=== PATIENT | female | born 1990 | race Two or more races ===

== ENCOUNTER → 2024-08-25 | Outpatient (CLI) | payer MEDICAID ==
[2024-08-25 11:52] LABS: Basophils # (auto) 0.1 10 ^3/uL (0-0.2); Basophils % (auto) 0.7 % (0.0-2.0); Eosinophils # (auto) 0.1 10 ^3/uL (0-0.8); Eosinophils % (auto) 1.3 % (0.0-7.0); Hematocrit 37.8 % (36.0-46.0); Hemoglobin 12.9 g/dL (12.2-16.2); Lymphocytes # (auto) 1.1 10 ^3/uL (0.4-5.4); Lymphocytes % (auto) 14.9 % (10.0-50.0); Mean Corpuscular Hemoglobin 32.7 pg (28.0-32.0); Mean Corpuscular Hgb Conc. 34.1 g/dL (32.0-36.0); Mean Corpuscular Volume 95.9 fL (80.0-100.0); Monocytes # (auto) 0.4 10 ^3/uL (0-1.3); Monocytes % (auto) 5.9 % (0.0-12.0); Neutrophils # (auto) 5.7 10 ^3/uL (1.6-8.6); Neutrophils % (auto) 77.2 % (37.0-80.0); Platelet Count (auto) 250 10^3/uL (140-450); Red Blood Cells 3.94 10^6/uL (4.0-5.20); Red Cell Distribution Width 13.5 % (11.8-14.3); White Blood Cell 7.4 10^3/uL (4.4-10.8)
[2024-08-25 12:11] LABS: Amphetamine Screen, Urine Neg (NEGATIVE); Barbiturate Scree,Urine Neg (NEGATIVE); Benzodiazephine Screen, Urine Neg (NEGATIVE); Cannabinoid Screen, Urine Neg (NEGATIVE); Cocaine Screen, Urine Neg (NEGATIVE); Opiate Scree,Urine Neg (NEGATIVE); Phencyclidine Screen, Urine Neg (NEGATIVE)
[2024-08-26 08:06] LABS: RPR Non Reactive (Non Reactive)
[2024-08-26 23:06] LABS: Chlamydia Trachomatis, NAA Negative (Negative); Neisseria gonorrhoeae, NAA Negative (Negative)
[2024-08-27 15:06] LABS: QuantiFERON-TB Gold Plus Negative (Negative)
== END | disposition home or self-care (01) ==
LOC: LAB 10:53
PROVIDERS: ATTEND Obstetrics & Gynecology
DX: N39.0 Urinary tract infection, site not specified (principal); Z20.09 Contact with and (suspected) exposure to other intestinal infectious diseases; Z31.430 Encounter of female for testing for genetic disease carrier status for procreative management
CPT/HCPCS: 36415; 80307; 83036; 84144; 84702; 85025; 86592; 86703; 86762; 86850; 86900; 86901; 87086; 87340

== ENCOUNTER 2025-01-12 09:41 | Outpatient (CLI) | payer MEDICAID ==
[2025-01-12 10:05] LABS: Basophils # (auto) 0 10 ^3/uL (0-0.2); Basophils % (auto) 0.5 % (0.0-2.0); Eosinophils # (auto) 0.1 10 ^3/uL (0-0.8); Eosinophils % (auto) 1.6 % (0.0-7.0); Hematocrit 38.4 % (36.0-46.0); Hemoglobin 13.2 g/dL (12.2-16.2); Lymphocytes # (auto) 1.1 10 ^3/uL (0.4-5.4); Lymphocytes % (auto) 14.7 % (10.0-50.0); Mean Corpuscular Hgb Conc. 34.4 g/dL (32.0-36.0); Mean Corpuscular Volume 96.1 fL (80.0-100.0); Monocytes # (auto) 0.5 10 ^3/uL (0-1.3); Monocytes % (auto) 6.5 % (0.0-12.0); Neutrophils # (auto) 5.5 10 ^3/uL (1.6-8.6); Neutrophils % (auto) 76.7 % (37.0-80.0); Nucleated Red Blood Cells % 0.1 %; Platelet Count (auto) 210 10^3/uL (140-450); Red Blood Cells 3.99 10^6/uL (4.0-5.20); Red Cell Distribution Width 13.2 % (11.8-14.3); White Blood Cell 7.2 10^3/uL (4.4-10.8)
[2025-01-14 02:06] LABS: Chlamydia Trachomatis, NAA Negative (Negative); Neisseria gonorrhoeae, NAA Negative (Negative)
== END 2025-01-12 17:00 | disposition home or self-care (01) ==
LOC: LAB 09:41
PROVIDERS: ATTEND Obstetrics & Gynecology
DX: Z34.80 Encounter for supervision of other normal pregnancy, unspecified trimester (principal); Z72.51 High risk heterosexual behavior; Z3A.00 Weeks of gestation of pregnancy not specified
CPT/HCPCS: 36415; 85025; 86780

== ENCOUNTER 2025-01-30 08:30 | Observation (INO) | payer MEDICAID ==
[2025-01-30] MEDS ORDERED: PREN-96 PO (11:31)
--- NOTE | 2025-01-30 11:56 | DVH ---
BIOPHYSICAL PROFILE HISTORY: AMA TECHNIQUE: Multiple transabdominal real-time grayscale sonographic images through the gravid uterus of the fetus with duplex Doppler color flow and M-mode spectral analysis FINDINGS: BIOPHYSICAL PROFILE: breathing score: 2/2 movement score: 2/2 tone score: 2/2 Quantitative ARMINDA score: 2/2 (ARMINDA: 11.47 Cm.) Total score: 8/8 The cervix closed Single live fetus in cephalic presentation. heart rate 146 beats per minute. anterior placenta without previa or abruption IMPRESSION: 1. Biophysical profile score: 8/8
--- NOTE | 2025-01-30 21:34 | DVHDS2 ---
Physician Discharge Progress N Final Diagnosis: ama, 39wks Operations or Procedures: Operations or Procedures nst reactive reviwed,sono Condition on Discharge: Good Disposition: Home Discharge Instructions: Diet: Regular Activity: No Restrictions, As Tolerated Follow Up/Referral: As scheduled. Medications: na Follow Up Care: Specialist: 2d,refuses induction Discharge Statement: "Patient was advised to return to the ER or call 911 if any headaches, dizziness, shortness of breath, chest pain, abdominal pain, bleeding, fevers, or worsening of medical condition. Patient was counseled about treatment plan, medications, possible side effects, patientverbalized understanding. All questions were answered to the best of my ability. This discharge took greater then 30 minutes in planning, reviewing documentation, counseling the patient, and discussing with other team members." Visit Coding OBGYN Date of Service: Jan 29, 2025 Billing Provider: JIAN MENARD DO OFFICE MANAGER Common Visit Codes: 76537-QCFOOVX INP/OBS CARE (HIGH) OFFICE MANAGER Procedure Codes: 99087-93- NON-STRESS TEST JIAN MENARD DO Jan 30, 2025 21:34
== END 2025-01-30 12:46 | disposition home or self-care (01) ==
LOC: LDRP 11:15
PROVIDERS: ADMIT Obstetrics & Gynecology; ATTEND Obstetrics & Gynecology
DX: Z36.89 Encounter for other specified antenatal screening (principal); Z98.890 Other specified postprocedural states; Z79.899 Other long term (current) drug therapy; Z3A.39 39 weeks gestation of pregnancy
CPT/HCPCS: 59025; 76819; 81002; 94760; G0378

== ENCOUNTER 2025-02-07 09:48 | Inpatient (IN) | payer MEDICAID ==
[~2025-02-07] VITALS: Ht 162.6 cm; Wt 68.0 kg
[~2025-02-07 09:48] MED LIST: PREN-96 PO
[2025-02-07] MEDS ORDERED: BUTORPHANOL TARTRATE 2 MG/1 ML VIAL IV PRN ×2 (11:15)
[2025-02-07] MEDS ORDERED: LIDOCAINE 2%HCL (LOCAL ANESTH.) INJ 20ML MDV IJ PRN (11:15)
--- NOTE | 2025-02-07 11:32 | DVHHP ---
ADMIT DATE: 02/07/2025 CHIEF COMPLAINT: Post dates, here for augmentation of labor. HISTORY OF PRESENT ILLNESS: The patient is a 34-year-old, 6, para 5, with an EDC of 01/31/2025, at an estimated gestational age of 41 weeks, admitted for augmentation of labor. The patient missed all her appointments. She then showed up to the office and stated she did not know what she was supposed to do. She previously had declined induction of labor. PAST MEDICAL HISTORY: None. PAST SURGICAL HISTORY: None. SOCIAL HISTORY: None. FAMILY HISTORY: None. OBSTETRIC AND GYNECOLOGIC HISTORY: Five normal vaginal deliveries. REVIEW OF SYSTEMS: Consistent with HPI. PHYSICAL EXAMINATION: VITAL SIGNS: Stable, afebrile. HEENT: Within normal limits. CARDIOVASCULAR: Regular rate and rhythm. LUNGS: Clear to auscultation. BREASTS: Symmetrical, no masses. ABDOMEN: Gravid. PELVIC: Cervix is , 60%, -1, posterior. EXTREMITIES: No clubbing, cyanosis, or edema. IMPRESSION: Intrauterine at 41 weeks, for augmentation of labor. PLAN: Informed consent obtained. Expected vaginal delivery. We will proceed with augmentation of labor. Dr. Dumont is on-call. He will manage the patient. Eliane Hernandez DO MZ/EKT/SELENA TID: [id number] RECEIPT: [id number]
[2025-02-07 11:39] LABS: Hematocrit 36.9 % (36.0-46.0); Hemoglobin 12.5 g/dL (12.2-16.2); Mean Corpuscular Hemoglobin 33.0 pg (28.0-32.0); Mean Corpuscular Volume 97.2 fL (80.0-100.0); Nucleated Red Blood Cells % 0.0 %
[2025-02-07 11:57] LABS: Alanine Aminotransferase 12 U/L (7-40); Albumin 3.6 g/dL (3.2-4.8); Anion Gap 10 (5-15); BUN/Creatinine Ratio 8.3 (10.0-20.0); Bilirubin, Total 0.7 mg/dL (0.2-1.0); Calcium 9.4 mg/dL (8.7-10.4); Carbon Dioxide 24 mmol/L (20-31); Chloride 105 mmol/L (98-107); Potassium 3.6 mmol/L (3.5-5.1); Sodium 139 mmol/L (136-145); Total Protein 5.9 g/dL (5.7-8.2)
[2025-02-07 11:58] LABS: INR 0.91 (0.9-1.15); Partial Thromboplastin Time 28.5 SEC (24.5-34.5); Prothrombin Time 9.7 sec (9.3-11.8)
[2025-02-07 12:01] LABS: Alkaline Phosphatase 119 U/L (46-116); Blood Urea Nitrogen 5 mg/dL (9-23); Glucose 64 mg/dL (74-106)
[2025-02-07 13:02] LABS: Urine Protein, UAD Negative (Negative)
[2025-02-07 13:09] LABS: Amphetamine Screen, Urine Neg (NEGATIVE); Barbiturate Scree,Urine Neg (NEGATIVE); Benzodiazephine Screen, Urine Neg (NEGATIVE); Cannabinoid Screen, Urine Neg (NEGATIVE); Cocaine Screen, Urine Neg (NEGATIVE); Opiate Scree,Urine Neg (NEGATIVE); Phencyclidine Screen, Urine Neg (NEGATIVE)
[2025-02-07] MEDS: NALOXONE HCL 0.4 MG/ML VIAL IV ONE (13:15)
[2025-02-07] MEDS: fentaNYL CITRATE 100 MCG/2 ML VL ONE (13:18)
[2025-02-07] MEDS: fentaNYL CITRATE 100 MCG/2 ML VL IV ONE (13:42)
[2025-02-07] MEDS: ROPIVACAINE HCL 100 ML ONE (13:43)
--- NOTE | 2025-02-07 13:51 | EPIDURAL ---
Anesthesia Procedural Note - Epidural Informed consent obtained?: Yes Medication Administered: Fentanyl 100 mcg Medication Administered: ePHEDrine 5 mg IV Sterile prept drape: Yes Spinal level of insertion: L4-L5 Test dose of lidocaine & Epine: Negative Infusion started: Yes Start time: 13:15 End time: 13:45 Procedure description Procedure description: Called for labor analgesia. Patient is here for labor augmentation, requesting epidural. History taken, chart reviewed and patient examined. Informed consent for CSE obtained (BP 116/68 HR 68 spO2 98). Sitting position, sterile prep and drape. Time out done. L4-5 space infiltrated with 1% lido. Epidural needle placed at 5cm with YEE. 25G spinal needle +clear CSF. 15mcg fentanyl given IT. Epidural catheter secured at 11cm. Aspiration and test dose (3cc 1.5% lido with epi) negative. 85 mcg fentanyl given via epidural. Patient reports good pain relief (BP 98/50 HR 70 spO2 98). 0.2% ropivacaine infusion started. Will follow as needed. KENNA SERRATO MD Feb 07, 2025 13:51
[2025-02-07] MEDS ORDERED: LACT. RINGERS/OXYTOCIN 20UNITS 1,000 ML IV SCH (14:30)
[2025-02-07] MEDS ORDERED: LACT. RINGERS/OXYTOCIN 20UNITS 500 ML IV ONE (15:00)
--- NOTE | 2025-02-07 18:59 | LDN2 ---
Labor and Delivery Note Date 02/07/25 Age 34 6 Para 6 AB 0 EDC 01/31/2025 EGA 41 weeks Diagnosis labor admitted 4+ cm intact Vaginal Delivery: VTX Placenta: Spontaneous Sex: Female Weight pnd Apgars pnd Nuchal Cord Transected: No Amniotic Fluid: Clear Anesthesia Epidural Episiotomy: No Extension: Yes (1st degree posterior perineal) Labs Laboratory Tests 08/25/24 11:18: Hepatitis B Surface Antigen Negative, HIV (1&2) Antibody Negative, Rubella Antibody Positive Blood Bank 02/07/25 11:10: Blood Type O POSITIVE Complications none Conditions stable guarded Online Editor none present or needed Visit Coding OBGYN Date of Service: Feb 07, 2025 Billing Provider: BLANCA ALLISON DO PARTS AND SERVICE MANAGER Common Visit Codes: 49607-LLR/OBS SAME DATE (HIGH) PARTS AND SERVICE MANAGER Procedure Codes: 89056-[id number] DEL INCLUDING BLANCA ALLISON DO Feb 07, 2025 18:59
[2025-02-07] MEDS: METHYLERGONOVINE MALEATE 0.2 MG/ML AMP IM ONE (19:03)
[2025-02-07] MEDS: LACT. RINGERS/OXYTOCIN 20UNITS 500 ML IV ONE (20:23)
[2025-02-07] MEDS: LACTATED RINGER'S 1,000 ML IV SCH (20:29)
[2025-02-07] MEDS: DERMOPLAST 60ML BOTTLE TOP PRN (20:29)
[2025-02-07] MEDS: WITCH HAZEL-GLYCERIN PAD TOP PRN (20:29)
[2025-02-07] MEDS: PHISODERM TOP SOLN 240ML BTL TOP PRN (20:30)
[2025-02-07 23:10] VITALS: BP 108/65; PULSE 59; RESP 16; TEMP 99.1; O2SAT 99
[2025-02-07] MEDS ORDERED: ONDANSETRON HCL 4 MG/2 ML VIAL IV PRN (23:15)
[2025-02-08] VITALS (7 sets, daily range): BP systolic 90–119; BP diastolic 42–69; PULSE 50–54; RESP 16–18; TEMP 36.4; O2SAT 96–99
[2025-02-08] MEDS: IBUPROFEN 600 MG TAB PO PRN (01:03)
[2025-02-08] MEDS: ACETAMINOPHEN 325 MG TAB PO PRN (03:11)
[2025-02-08 04:53] LABS: Hematocrit 43.6 % (36.0-46.0); Hemoglobin 14.7 g/dL (12.2-16.2); Mean Corpuscular Hemoglobin 32.3 pg (28.0-32.0); Mean Corpuscular Volume 95.8 fL (80.0-100.0); Nucleated Red Blood Cells % 0.0 %
--- NOTE | 2025-02-08 05:48 | DVHPN2 ---
Chief Complaints Patient reports: No new complaints Nursing reports: No new complaints, No abdominal pain, No chest pain, No dizziness, No cough Objective Vitals Vital Signs Date Time Temp Pulse Resp B/P (MAP) Pulse Ox O2 Delivery O2 Flow Rate FiO2 02/08/25 03:30 98.5 54 16 119/69 (86) 99 98.5 02/07/25 20:45 Room Air Medications Current Medications Medications (Trade) Dose Ordered Sig/Desiree Route PRN Reason Start Time Stop Time Status Last Admin Acetaminophen (Tylenol Tablet) 650 mg Q4HP PRN PO MILD PAIN (1-3 PAIN SCALE) 02/07/25 23:15 02/08/25 03:11 Benzocaine (Dermoplast) 1 applic PRN PRN TOP PERINEAL AREA DISCOMFORT 02/07/25 11:15 02/07/25 20:29 Docusate Sodium (Colace Capsule) 200 mg HS PO 02/08/25 22:00 Ibuprofen (Motrin Tablet) 600 mg Q6HP PRN PO MODERATE PAIN (4-6 PAIN SCALE) 02/07/25 23:15 02/08/25 01:03 Lactated Ringer's 1,000 ml @ 125 mls/hr Q8H IV 02/07/25 11:15 02/07/25 20:29 Lidocaine HCl (Xylocaine) 20 ml ONCE PRN IJ PERINEAL AREA DISCOMFORT 02/07/25 11:15 Cancel Misoprostol (Cytotec) 200 mcg ONCE PRN SL BLEED/HEMORRHAGE 02/08/25 00:45 Cancel Misoprostol (Cytotec) 600 mcg ONCE PRN ME BLEED/HEMORRHAGE 02/08/25 00:45 Cancel Ondansetron HCl (Zofran) 4 mg Q4HP PRN IV NAUSEA / VOMITING 02/07/25 23:15 Oxytocin 1,000 ml @ 6 ml/hr Q24H IV 02/07/25 14:30 Cancel Sodium Lauryl Sulfate (Phisoderm) 240 ml PRN PRN TOP PERINEAL AREA DISCOMFORT 02/07/25 11:15 02/07/25 20:30 Witch Gretchen (Tucks) 1 pad PRN PRN TOP PERINEAL AREA DISCOMFORT 02/07/25 11:15 02/07/25 20:29 General: Normal Head/Eyes: Normal Neck: Normal Lungs: Normal Cardiovascular: Normal Abdominal: Normal (Uterus firm 12 weeks size) Musculoskeletal: Normal Extremities: Normal Skin: Normal Neurological: Normal Studies Laboratory Tests 02/08/25 04:35 02/07/25 11:10 Test 02/07/25 11:10 Range/Units Serum Glucose 64 L 74-106 mg/dL Ass/Plan Assessment day 1 stable improved patient requesting discharge home Plan See discharge summary see BLANCA ALLISON DO Feb 08, 2025 05:48
--- NOTE | 2025-02-08 05:51 | DVHDS2 ---
Discharge Summary Date of Admission Feb 07, 2025 at 09:48 Date of Discharge: Feb 08, 2025 Admitting Diagnosis Status post Labs/Diagnostic Data: Laboratory Results Test 02/08/25 04:35 02/07/25 11:10 02/07/25 11:08 White Blood Count 9.3 10^3/uL (4.4-10.8) Red Blood Count 4.55 10^6/uL (4.0-5.20) Hemoglobin 14.7 g/dL (12.2-16.2) Hematocrit 43.6 % (36.0-46.0) Mean Corpuscular Volume 95.8 fL (80.0-100.0) Mean Corpuscular Hemoglobin 32.3 pg (28.0-32.0) Mean Corpuscular Hemoglobin Concent 33.7 g/dL (32.0-36.0) Red Cell Distribution Width 13.3 % (11.8-14.3) Platelet Count 179 10^3/uL (140-450) Mean Platelet Volume 8.7 fL (6.9-10.8) Neutrophils (%) (Auto) 80.3 % (37.0-80.0) Lymphocytes (%) (Auto) 10.9 % (10.0-50.0) Monocytes (%) (Auto) 7.6 % (0.0-12.0) Eosinophils (%) (Auto) 0.7 % (0.0-7.0) Basophils (%) (Auto) 0.5 % (0.0-2.0) Neutrophils # (Auto) 7.5 10 ^3/uL (1.6-8.6) Lymphocytes # (Auto) 1.0 10 ^3/uL (0.4-5.4) Monocytes # (Auto) 0.7 10 ^3/uL (0-1.3) Eosinophils # (Auto) 0.1 10 ^3/uL (0-0.8) Basophils # (Auto) 0 10 ^3/uL (0-0.2) Nucleated Red Blood Cells 0.0 % Prothrombin Time 9.7 sec (9.3-11.8) Prothrombin Time INR 0.91 (0.9-1.15) Activated Partial Thromboplast Time 28.5 SEC (24.5-34.5) Sodium Level 139 mmol/L (136-145) Potassium Level 3.6 mmol/L (3.5-5.1) Chloride Level 105 mmol/L (98-107) Carbon Dioxide Level 24 mmol/L (20-31) Anion Gap 10 (5-15) Blood Urea Nitrogen 5 mg/dL (9-23) Creatinine 0.60 mg/dL (0.550-1.02) Glomerular Filtration Rate Calc 120 mL/min (>90) BUN/Creatinine Ratio 8.3 (10.0-20.0) Serum Glucose 64 mg/dL (74-106) Calcium Level 9.4 mg/dL (8.7-10.4) Total Bilirubin 0.7 mg/dL (0.2-1.0) Aspartate Amino Transferase (AST) 27 U/L (13-40) Alanine Aminotransferase (ALT) 12 U/L (7-40) Alkaline Phosphatase 119 U/L (46-116) Total Protein 5.9 g/dL (5.7-8.2) Albumin 3.6 g/dL (3.2-4.8) Treponema pallidum Antibody Non-reactive (Negative) Hepatitis C Antibody Negative (Negative) Urine Color Colorless (Yellow) Urine Clarity Clear (Clear) Urine pH 7.5 (5.0-9.0) Urine Specific [place] 1.001 (1.001-1.035) Urine Protein Negative (Negative) Urine Ketones Negative (Negative) Urine Blood Negative /uL (Negative) Urine Nitrite Negative (Negative) Urine Bilirubin Negative (Negative) Urine Urobilinogen Normal mg/dL (Negative) Urine Leukocyte Esterase Negative /uL (Negative) Urine RBC None seen /hpf (0 - 4) Urine Microscopic WBC /HPF (0-5) Urine Squamous Epithelial Cells None seen /hpf (<5) Urine Bacteria None seen /hpf (None Seen) Urine Glucose Normal mg/dL (Normal) Urine Opiates Screen Neg (NEGATIVE) Urine Fentanyl Screen Neg (NEGATIVE) Urine Barbiturates Screen Neg (NEGATIVE) Urine Phencyclidine Screen Neg (NEGATIVE) Urine Amphetamines Screen Neg (NEGATIVE) Urine Benzodiazepines Screen Neg (NEGATIVE) Urine Cocaine Screen Neg (NEGATIVE) Urine Cannabinoids Screen Neg (NEGATIVE) Other Laboratory Tests 02/08/25 04:35 02/07/25 11:10 Brief Hx & Hospital Course: Patient admitted delivered Consults/Reason for consult None Operations or Procedures None Condition at Discharge: Good Final Diagnosis/Problems List Status post Discharge Disposition: Home (Stable improved) Discharge Instruct/Medications Diet: Regular Activity comment: Pelvic rest 6 weeks Follow Up/Referral: Follow up primary OBGYN 2 weeks or p.r.n. Medications: None Scheduled Vit W/ Ferrous Fumara ( One Daily), 1 TAB PO DAILY, (Reported) Discharge Statement: "Patient was advised to return to the ER or call 911 if any headaches, dizziness, shortness of breath, chest pain, abdominal pain, bleeding, fevers, or worsening of medical condition. Patient was counseled about treatment plan, medications, possible side effects, patientverbalized understanding. All questions were answered to the best of my ability. This discharge took greater then 30 minutes in planning, reviewing documentation, counseling the patient, and discussing with other team members." ASSESSMENT ASSESSMENT Assessment Visit Coding OBGYN Date of Service: Feb 08, 2025 Billing Provider: BLANCA ALLISON DO TOBACCO ROLLER Common Visit Codes: 50372-KDP/OBS SAME DATE (HIGH) TOBACCO ROLLER Procedure Codes: 90552-[id number] DEL INCLUDING BLANCA ALLISON DO Feb 08, 2025 05:51
--- NOTE | 2025-02-08 20:34 | DVH ---
Left lower extremity venous duplex Clinical History: LL PAIN Comparison: None Technique: Duplex Doppler evaluation of the deep venous system of the left lower extremity from the common femor al vein to the popliteal vein including color Doppler and spectral/pulsed waveform analysis was perfo rmed. Findings: The common femoral vein demonstrates appropriate compressibility and waveform variability. There is compressibility/patency of the great saphenous vein at the proximal thigh. The femoral vein demonstrates appropriate compressibility and waveform variability. The deep femoral vein demonstrates appropriate compressibility and waveform variability. The popliteal vein demonstrates appropriate compressibility and waveform variability. There is normal compressibility at the tibioperoneal trunk. Impression: 1. No left femoropopliteal venous thrombosis. 2. Contralateral common femoral vein is patent.
[2025-02-08] MEDS: DOCUSATE SOD 100 MG CAP PO SCH (22:00)
--- NOTE | 2025-02-09 00:13 | DVHDS2 ---
Obstetrics Discharge Summary Obstetrics Discharge Summary Date of Admission: Feb 07, 2025 Date of Discharge: Feb 09, 2025 Reason For Admission: Induction of Labor (post dates) Procedures: NST Intrapartum Procedures: Spontaneous vaginal deliv Procedures: Hct/date: (02/08/25), Hgb/date: (02/08/25) Operative Complicat: Laceration (first degree perineal), Others (DVT ruled out) Discharge Diagnosis: Term -Delivered Discharge Information: Activity (as tolerated, no heavy lifting and nothing in the vagina for 6 weeks), Diet (Routine), Medications (Rx sent), Instructions (Routine), Discharge to (Home), Accompanied by (family), Discarge date (02/09/25) Visit Coding OBGYN Date of Service: Feb 09, 2025 Billing Provider: JONATHON CARDOSO CNM TRAVELING STOREKEEPER Common Visit Codes: 83465-SCV/OBS DISCH DAY <30MIN JONATHON CARDOSO CNM Feb 09, 2025 00:13
--- NOTE | 2025-02-09 00:13 | DVHPN2 ---
Progress Note Date Seen: Feb 09, 2025 Subjective S: bleeding is less, eating food without issues, denies lightheaded/dizziness, pain well controlled with oral medications, no concerns with urinating, passing flatus, no BM yet, ambulating well, well vital signs Vital Sign Date Time Temp Pulse Resp B/P (MAP) Pulse Ox O2 Delivery O2 Flow Rate FiO2 02/08/25 23:00 97.8 52 17 97/55 (69) 97 97.8 02/08/25 19:30 Room Air medications Current Medications Medications Dose Ordered Sig/Desiree Route Start Time Stop Time Status Last Admin Dose Admin Lactated Ringer's 1,000 ml @ 125 mls/hr Q8H IV 02/07/25 11:15 02/07/25 20:29 125 MLS/HR Oseas Godinez 1 pad PRN PRN TOP 02/07/25 11:15 02/07/25 20:29 1 PAD Sodium Lauryl Sulfate 240 ml PRN PRN TOP 02/07/25 11:15 02/07/25 20:30 240 ML Benzocaine 1 applic PRN PRN TOP 02/07/25 11:15 02/07/25 20:29 1 APPLIC Lidocaine HCl 20 ml ONCE PRN IJ 02/07/25 11:15 Cancel Oxytocin 1,000 ml @ 6 ml/hr Q24H IV 02/07/25 14:30 Cancel Ibuprofen 600 mg Q6HP PRN PO 02/07/25 23:15 02/08/25 01:03 600 MG Acetaminophen 650 mg Q4HP PRN PO 02/07/25 23:15 02/08/25 03:11 650 MG Ondansetron HCl 4 mg Q4HP PRN IV 02/07/25 23:15 Docusate Sodium 200 mg HS PO 02/08/25 22:00 Misoprostol 200 mcg ONCE PRN SL 02/08/25 00:45 Cancel Misoprostol 600 mcg ONCE PRN [place] 02/08/25 00:45 Cancel laboratory and microbiology Laboratory Tests 02/08/25 04:35 02/07/25 11:10 Test 02/07/25 11:10 Range/Units Serum Glucose 64 L 74-106 mg/dL Objective O: VSS Chest: heart sounds normal and lung sounds clear bilaterally Abd: soft, non-tender, fundus at U/firm/midline, active bowel sounds, no rebound or guarding Perineum: sutures intact, edges well approximated, no erythema/edema noted Ext: Non-tender, No edema, 2+ BLE DTRs Lochia: minimal See lab results Problems(with codes): (1) (normal spontaneous vaginal delivery) (2) First degree perineal laceration during delivery Assessment/Plan A: 34yo now PPD#2 s/p Rh+ Rubella Immune P: D/C home today Rx sent to pharmacy precautions and preeclampsia warning signs reviewed F/U with [facility] office in 2 weeks Plan discussed with: Patient Visit Coding OBGYN Date of Service: Feb 09, 2025 Billing Provider: JONATHON CARDOSO CNM DOOR FRAMER Common Visit Codes: [id number] INP/OBS CARE(MOD) JONATHON CARDOSO CNM Feb 09, 2025 00:13
[2025-02-09] MEDS ORDERED: PREN-96 PO (00:31)
[2025-02-09] MEDS ORDERED: DOCU-265 PO (00:31)
[2025-02-09] MEDS ORDERED: IBU600T PO (00:31)
[2025-02-09 02:46] VITALS: BP 108/54; PULSE 50; RESP 16; TEMP 97.5; O2SAT 99
[2025-02-09 06:35] VITALS: BP 108/53; PULSE 68; RESP 16; TEMP 98; O2SAT 99
[2025-02-09 11:00] VITALS: BP 102/52; PULSE 70; RESP 16; TEMP 98.1; O2SAT 99
[2025-02-09 15:30] VITALS: BP 108/55; PULSE 55; RESP 18; TEMP 98.6; O2SAT 99
== END 2025-02-09 15:45 | disposition home or self-care (01) | DRG 560 ==
LOC: LDRP 09:48
PROVIDERS: ADMIT Obstetrics & Gynecology; ATTEND Obstetrics & Gynecology
PROC: 10E0XZZ Delivery of Products of Conception, External Approach (ICD-10-PCS; principal; 2025-02-07)
PROC: 0HQ9XZZ Repair Perineum Skin, External Approach (ICD-10-PCS; 2025-02-07)
PROC: 3E0R3BZ Introduction of Anesthetic Agent into Spinal Canal, Percutaneous Approach (ICD-10-PCS; 2025-02-07)
PROC: 00HU33Z Insertion of Infusion Device into Spinal Canal, Percutaneous Approach (ICD-10-PCS; 2025-02-07)
PROC: 3E033VJ Introduction of Other Hormone into Peripheral Vein, Percutaneous Approach (ICD-10-PCS; 2025-02-07)
DX: O48.0 Post-term pregnancy (principal); Z37.0 Single live birth; O70.0 First degree perineal laceration during delivery; Z3A.41 41 weeks gestation of pregnancy
CPT/HCPCS: 36415; 59025; 59409; 62282; 80053; 80307; 81001; 81002; 85025; 85610; 85730; 86780; 86803; 86850; 86900; 86901; 93971; 94760; 94762; 96360; 96361; 96365; 96372; G0378; J2590